=== PATIENT | female | born 2000 | race Hispanic/Latino ===

== ENCOUNTER 2024-09-26 13:06 | Emergency (ER) | payer SELFPAY ==
[2024-09-26] MEDS ORDERED: Dexamethasone 10 MG/ML VIAL ONE (13:55)
== END 2024-09-26 14:02 | disposition home or self-care (01) ==
LOC: ERS 13:06
DX: L25.5 Unspecified contact dermatitis due to plants, except food (principal)
CPT/HCPCS: 99282; J1100